=== PATIENT | female | born 1935 | race Caucasian/White ===

== ENCOUNTER 2020-09-16 09:47 | Inpatient (IN) | payer MEDICARE, OTHER ==
[2020-09-16] MEDS ORDERED: Fentanyl 100 MCG/2 ML VIAL ONE ×3 (10:18→12:58)
[2020-09-16 10:40] LABS: #Lymphocytes 1.3 thou/uL (1.20-3.40); #Monocytes 0.7 thou/uL (0.11-0.59); #Neutrophils 13.7 thou/uL (1.40-6.50); %Eosinophils 0.2 % (0.0-10.0); %Lymphocytes 8.1 % (21.0-51.0); %Monocytes 4.6 % (0.0-10.0); Hemoglobin 13.3 g/dL (12.0-16.0); Mean Corpuscular HGB CONC 32.5 g/dL (32.0-36.0); Mean Corpuscular Hemoglobin 29.8 pg (27.0-31.0); Mean Corpuscular Volume 91.9 fL (78.0-98.0); Mean Platelet Volume 8.7 fL (7.4-10.4); Platelet Count 237 thou/uL (130-400); RBC Distribution Width 11.8 % (11.5-14.5); Red Blood Cell (RBC) Count 4.45 mill/uL (4.20-5.40); White Blood Cell (WBC) Count 15.7 thou/uL (4.8-10.8)
[2020-09-16 10:57] LABS: PTT 29.3 sec (22.9-36.1); Prothrombin Time 13.3 sec (12.0-14.7)
[2020-09-16 11:01] LABS: ALT (SGPT) 32 U/L (8-55); AST (SGOT) 31 U/L (5-34); Albumin 4.5 g/dL (3.4-4.8); Alkaline Phosphatase 96 U/L (40-110); Anion Gap 11 mmol/L (10-20); BUN (Urea Nitrogen) 11 mg/dL (9.8-20.1); Bilirubin, Total 0.8 mg/dL (0.2-1.2); Calc. Creatinine Clearance 0 mL/min (70-130); Calcium 9.9 mg/dL (7.8-10.44); Carbon Dioxide 29 mmol/L (23-31); Chloride 103 mmol/L (98-107); Globulin 3.6 g/dL (2.4-3.5); Glucose 126 mg/dL (83-110); Potassium 3.5 mmol/L (3.5-5.1); Protein, Total 8.1 g/dL (5.8-8.1); Sodium 139 mmol/L (136-145)
[2020-09-16 11:03] LABS: Bilirubin Negative (Negative); Blood, Urine Negative (Negative); Clarity Clear (Clear); Glucose, Urine (Dipstick) Normal (Negative); Ketone, Urine Negative (Negative); Leukocyte 500 Leu/uL (Negative); Nitrite 2+ (Negative); Protein, Urine (Dipstick) Negative (Neg-Trace); RBC/HPF 0-3 HPF (0-3); Specific Gravity, Urine 1.012 (1.002-1.036); Squamous Epithelial 0-3 HPF (0-3); Urobilinogen Normal mg/dL (Less than 2); WBC/HPF 21-50 HPF (0-3); pH, Urine 6.5 (5.0-9.0)
[2020-09-16 11:04] LABS: Bacteria/HPF 1+ HPF (None Seen)
[2020-09-16] MEDS ORDERED: cefTRIAXone\\ROCEPHIN 1 GM VIAL ONE (11:29)
[2020-09-16] MEDS ORDERED: hydrALAZINE 20 MG/ML VIAL SLOW IVP PRN (11:29)
[2020-09-16] MEDS ORDERED: Morphine 2 MG/ML VIAL SLOW IVP PRN ×2 (11:29→14:19)
[2020-09-16] MEDS ORDERED: Ondansetron ODT 4 MG TAB PO PRN (11:29)
[2020-09-16] MEDS ORDERED: traMADol HCl 50 MG TAB PO PRN (11:32)
[2020-09-16] MEDS ORDERED: Ibuprofen 600 MG TAB PO PRN ×2 (11:32→13:45)
[2020-09-16] MEDS ORDERED: CEFAZOLIN 2 GM in Premix Bag 1 BAG IVPB SCH (12:15)
[2020-09-16 12:24] LABS: SARS-CoV-2 NAA Rapid Test Not Detected (NotDetected)
[2020-09-16 12:32] LABS: Troponin I 0.011 ng/mL (< 0.028)
[2020-09-16] MEDS ORDERED: Famotidine/PF 20 mg/2ml Vial ONE (12:58)
[2020-09-16 13:06] VITALS: BMI 35.7
[2020-09-16] MEDS ORDERED: cefTRIAXone\\ROCEPHIN 2 GM in Sodium Chloride 0.9% 100 ML IVPB SCH ×2 (14:15→22:00)
[2020-09-16] MEDS: Acetaminophen 325 MG TAB PO SCH ×2 (15:08→15:33)
[2020-09-16] MEDS: Gabapentin 300 MG CAP PO SCH ×2 (15:09→21:18)
[2020-09-16] MEDS: Lactated Ringer's 1,000 ML IV SCH (15:15)
[2020-09-16] MEDS ORDERED: Baclofen 10 MG TAB PO PRN (15:41)
[2020-09-16] MEDS: Atorvastatin Calcium 20 MG TAB PO SCH (17:38)
[2020-09-16] MEDS: NIFEdipine XL 30 MG TAB PO SCH (17:39)
[2020-09-16] MEDS ORDERED: Nitrofurantoin Monohyd/M-Cryst 100 MG CAP PO SCH (21:00)
[2020-09-16] MEDS: Famotidine 20 MG TAB PO SCH (21:17)
[2020-09-16] MEDS: Famotidine/PF 20 mg/2ml Vial SLOW IVP SCH (21:18)
[2020-09-17] MEDS: Acetaminophen 325 MG TAB PO SCH ×4 (00:12→19:50)
[2020-09-17] MEDS: Lactated Ringer's 1,000 ML IV SCH ×2 (00:12→05:24)
[2020-09-17] MEDS: Levothyroxine Sodium 50 MCG TAB PO SCH (05:19)
[2020-09-17 06:08] LABS: #Eosinphils 0.5 thou/uL (0.0-0.7); #Lymphocytes 2.1 thou/uL (1.20-3.40); #Monocytes 0.7 thou/uL (0.11-0.59); #Neutrophils 6.2 thou/uL (1.40-6.50); %Basophils 0.2 % (0.0-1.0); %Lymphocytes 21.5 % (21.0-51.0); %Monocytes 7.7 % (0.0-10.0); %Neutrophils 65.5 % (42.0-75.0); Hemoglobin 12.4 g/dL (12.0-16.0); Mean Corpuscular Hemoglobin 31.7 pg (27.0-31.0); Mean Platelet Volume 8.7 fL (7.4-10.4); Platelet Count 206 thou/uL (130-400); RBC Distribution Width 11.8 % (11.5-14.5); Red Blood Cell (RBC) Count 3.92 mill/uL (4.20-5.40); White Blood Cell (WBC) Count 9.5 thou/uL (4.8-10.8)
[2020-09-17 06:36] LABS: Anion Gap 11 mmol/L (10-20); BUN (Urea Nitrogen) 7 mg/dL (9.8-20.1); Calc. Creatinine Clearance 82 mL/min (70-130); Calcium 8.9 mg/dL (7.8-10.44); Carbon Dioxide 29 mmol/L (23-31); Chloride 105 mmol/L (98-107); Glucose 116 mg/dL (83-110); Magnesium 1.8 mg/dL (1.6-2.6); Phosphorus 3.7 mg/dL (2.3-4.7); Potassium 4.1 mmol/L (3.5-5.1); Sodium 141 mmol/L (136-145)
[2020-09-17] MEDS ORDERED: CEFAZOLIN 2 GM in Premix Bag 1 BAG IVPB SCH (07:15)
[2020-09-17] MEDS ORDERED: Enoxaparin Sodium 40 MG/0.4 ML SYRINGE SC SCH (09:00)
[2020-09-17] MEDS ORDERED: cefTRIAXone\\ROCEPHIN 2 GM in Sodium Chloride 0.9% 100 ML IVPB SCH (11:00)
[2020-09-17] MEDS: Gabapentin 300 MG CAP PO SCH ×3 (11:03→21:04)
[2020-09-17] MEDS: Ascorbic Acid 500 mg Chewable Tablet PO SCH (11:03)
[2020-09-17] MEDS: DULoxetine 60 MG CAP PO SCH (11:03)
[2020-09-17] MEDS: Famotidine/PF 20 mg/2ml Vial SLOW IVP SCH (11:03)
[2020-09-17] MEDS: Famotidine 20 MG TAB PO SCH (11:03)
[2020-09-17] MEDS: Polyethylene Glycol 3350 17 GM Packet PO SCH (11:04)
[2020-09-17] MEDS ORDERED: Dexamethasone 20 MG/5 ML VIAL ONE (14:57)
[2020-09-17] MEDS ORDERED: Rocuronium Bromide 10 MG/ML (10ML VIAL) ONE (14:57)
[2020-09-17] MEDS ORDERED: PROPOFOL 200 MG/20 ML VIAL ONE (14:57)
[2020-09-17] MEDS ORDERED: Lidocaine 1% PF 5 ML VIAL ONE (14:57)
[2020-09-17] MEDS ORDERED: Ondansetron PF 4 MG/2 ML Vial ONE (14:57)
[2020-09-17] MEDS ORDERED: Sodium Chloride 0.9% 20 ML ONE (15:24)
[2020-09-17] MEDS ORDERED: Fentanyl 100 MCG/2 ML VIAL ONE (15:44)
[2020-09-17] MEDS ORDERED: SUGAMMADEX SODIUM 200 MG/2 ML VIAL ONE (16:14)
[2020-09-17] MEDS ORDERED: Morphine Sulfate 2 MG/ML SYRINGE SLOW IVP PRN (16:40)
[2020-09-17] MEDS ORDERED: Ondansetron HCl/PF 4 MG/2 ML Vial IVP PRN (16:40)
[2020-09-17] MEDS ORDERED: Promethazine HCl 25 MG/ML VIAL IM PRN (16:40)
[2020-09-17] MEDS ORDERED: Meperidine HCl/PF 25 MG/ML VIAL SLOW IVP PRN (16:40)
[2020-09-17] MEDS ORDERED: HYDROmorphone 2 MG/ML VIAL SLOW IVP PRN (16:40)
[2020-09-17] MEDS ORDERED: Promethazine HCl 25 MG/ML VIAL IVPB PRN (16:40)
[2020-09-17] MEDS: Atorvastatin Calcium 20 MG TAB PO SCH (21:03)
[2020-09-17] MEDS: NIFEdipine XL 30 MG TAB PO SCH (21:03)
[2020-09-17] MEDS: CEFAZOLIN 2 GM in Premix Bag 1 BAG IVPB SCH (21:04)
[2020-09-18] MEDS: Acetaminophen 325 MG TAB PO SCH ×4 (00:18→17:51)
[2020-09-18] MEDS: Levothyroxine Sodium 50 MCG TAB PO SCH (06:00)
[2020-09-18] MEDS: CEFAZOLIN 2 GM in Premix Bag 1 BAG IVPB SCH ×2 (06:00→14:52)
[2020-09-18 06:01] LABS: #Lymphocytes 1.1 thou/uL (1.20-3.40); #Monocytes 0.9 thou/uL (0.11-0.59); #Neutrophils 9.8 thou/uL (1.40-6.50); %Basophils 0.1 % (0.0-1.0); %Eosinophils 0.2 % (0.0-10.0); %Lymphocytes 9.2 % (21.0-51.0); %Monocytes 7.7 % (0.0-10.0); %Neutrophils 82.9 % (42.0-75.0); Hemoglobin 11.2 g/dL (12.0-16.0); Mean Corpuscular HGB CONC 33.9 g/dL (32.0-36.0); Mean Corpuscular Hemoglobin 31.4 pg (27.0-31.0); Mean Corpuscular Volume 92.6 fL (78.0-98.0); Mean Platelet Volume 8.6 fL (7.4-10.4); Platelet Count 210 thou/uL (130-400); RBC Distribution Width 11.7 % (11.5-14.5); Red Blood Cell (RBC) Count 3.57 mill/uL (4.20-5.40); White Blood Cell (WBC) Count 11.8 thou/uL (4.8-10.8)
[2020-09-18] MEDS: Enoxaparin Sodium 40 MG/0.4 ML SYRINGE SC SCH (10:11)
[2020-09-18] MEDS: Nitrofurantoin Monohyd/M-Cryst 100 MG CAP PO SCH ×2 (10:12→21:17)
[2020-09-18] MEDS: Gabapentin 300 MG CAP PO SCH ×3 (10:12→21:15)
[2020-09-18] MEDS: Losartan 25 MG TAB PO SCH (10:12)
[2020-09-18] MEDS: DULoxetine 60 MG CAP PO SCH (10:13)
[2020-09-18] MEDS: Ascorbic Acid 500 mg Chewable Tablet PO SCH (10:14)
[2020-09-18] MEDS: Polyethylene Glycol 3350 17 GM Packet PO SCH (12:21)
[2020-09-18] MEDS: Atorvastatin Calcium 20 MG TAB PO SCH (21:15)
[2020-09-18] MEDS: NIFEdipine XL 30 MG TAB PO SCH (21:16)
[2020-09-19] MEDS: Acetaminophen 325 MG TAB PO SCH ×3 (00:16→11:26)
[2020-09-19] MEDS: Levothyroxine Sodium 50 MCG TAB PO SCH (05:57)
[2020-09-19 06:14] LABS: #Eosinphils 0.3 thou/uL (0.0-0.7); #Lymphocytes 2.9 thou/uL (1.20-3.40); #Monocytes 1.2 thou/uL (0.11-0.59); #Neutrophils 7.1 thou/uL (1.40-6.50); %Basophils 0.2 % (0.0-1.0); %Eosinophils 2.4 % (0.0-10.0); %Lymphocytes 25.1 % (21.0-51.0); %Monocytes 10.5 % (0.0-10.0); %Neutrophils 61.8 % (42.0-75.0); Hemoglobin 10.3 g/dL (12.0-16.0); Mean Corpuscular HGB CONC 34.1 g/dL (32.0-36.0); Mean Corpuscular Hemoglobin 31.8 pg (27.0-31.0); Mean Corpuscular Volume 93.2 fL (78.0-98.0); Mean Platelet Volume 8.9 fL (7.4-10.4); Platelet Count 189 thou/uL (130-400); RBC Distribution Width 11.8 % (11.5-14.5); Red Blood Cell (RBC) Count 3.23 mill/uL (4.20-5.40); White Blood Cell (WBC) Count 11.6 thou/uL (4.8-10.8)
[2020-09-19] MEDS: DULoxetine 60 MG CAP PO SCH (09:34)
[2020-09-19] MEDS: Gabapentin 300 MG CAP PO SCH (09:35)
[2020-09-19] MEDS: Ascorbic Acid 500 mg Chewable Tablet PO SCH (09:35)
[2020-09-19] MEDS: Nitrofurantoin Monohyd/M-Cryst 100 MG CAP PO SCH (09:35)
[2020-09-19] MEDS: Losartan 25 MG TAB PO SCH (09:35)
[2020-09-19] MEDS: Enoxaparin Sodium 40 MG/0.4 ML SYRINGE SC SCH (09:37)
[2020-09-19] MEDS: Polyethylene Glycol 3350 17 GM Packet PO SCH (09:40)
[2020-09-19 11:59] VITALS: BP 120/65; TEMP 98.6
== END 2020-09-19 12:48 | DRG 522 ==
LOC: ERS 09:47 → SURG A 11:29
PROVIDERS: ADMIT Surgery; ATTEND Surgery
PROC: 0SRR0JZ Replacement of Right Hip Joint, Femoral Surface with Synthetic Substitute, Open Approach (ICD-10-PCS; principal; 2020-09-17)
DX: S72.001A Fracture of unspecified part of neck of right femur, initial encounter for closed fracture (principal); N39.0 Urinary tract infection, site not specified; E78.00 Pure hypercholesterolemia, unspecified; I10 Essential (primary) hypertension; G89.29 Other chronic pain; M54.9 Dorsalgia, unspecified; E78.5 Hyperlipidemia, unspecified; W19.XXXA Unspecified fall, initial encounter; I48.91 Unspecified atrial fibrillation; M19.90 Unspecified osteoarthritis, unspecified site; M06.9 Rheumatoid arthritis, unspecified; E03.9 Hypothyroidism, unspecified; Z88.8 Allergy status to other drugs, medicaments and biological substances; Z90.710 Acquired absence of both cervix and uterus; Z88.2 Allergy status to sulfonamides; Y92.008 Other place in unspecified non-institutional (private) residence as the place of occurrence of the external cause; Z79.899 Other long term (current) drug therapy
CPT/HCPCS: 36415; 71045; 72170; 80048; 80053; 81003; 81015; 82550; 83735; 84100; 84484; 85025; 85610; 85730; 86850; 86900; 86901; 87077; 87086; 87186; 93005; 94760; 96365; 96376; G0390; J0690; J0696; J1100; J1650; J2405; J2704; J3010; J3370; J3490; S0028; U0002; U0005